=== PATIENT | female | born 1985 | race Caucasian/White ===

== ENCOUNTER 2017-07-24 09:41 | Emergency (ER) | payer OTHER ==
[2017-07-24 09:48] VITALS: BP 116/77; PULSE 93; TEMP 98.2; BMI 29.0
--- NOTE | 2017-07-24 10:54 | PDOC ---
Attending Attestation - HPI HPI: 07/24/17 11:07 The patient is a 31 year old female, with a significant past medical history of sickle cell disease, who presents to the emergency department with typical crisis of sickle cell disease with increase pain to bilateral knee, elbow, ankle , and finger joints, as well as, a pressure-like discomfort to her mid chest. The patient states she was on her way to work when her pain became intolerable and reports her carried me into the house. She states her chest discomfort is 7/10, without radiation. She denies history of acute chest and states her chest discomfort is typical before complete crisis. She states she recently lost her insurance card and ordered a new one to be sent to her home, however, has been unable to turkey picker medications in the pharmacy secondary to not having the insurance card present at time of Rx pick-up. She states she usually gets prescribed oxycontin, however, during ED visits in the past reportedly received 1 tab and IV fluids for rehydration. She states she will return her secondary school registrar, Nurse Practitioner Sarika Chenye at [place], as soon as she can. She reports her last ED visit for her sickle cell disease was February 2017. She denies shortness of breath, headache and dizziness. She denies fever, chills , nausea, vomit, diarrhea and constipation. She denies dysuria, frequency, urgency and hematuria. Allergies: NKDA Helicopter Crew Chief: Sarika SOLARES or [phone]) - Physicial Exam PE: 07/24/17 11:07 ROS: A complete review of 10 out of 10 review of systems is taken and is negative apart from what is previously mentioned below and in the HPI. Exam Vitals: Triage Vital signs reviewed General Appearance: no acute distress, well nourished well developed, Head: Atraumatic, normocephalic Eyes: Pupils equal reactive round, extraocular movement intact Ears: TM's normal bilaterally; Nose: Nares patent bilaterally;no nasal congestion Throat: Posterior oropharynx without erythema, mucous membranes moist, Neck: Supple;No Nuchal rigidity Chest Wall: Nontender Cardiac: Regular rate and rhythm, no murmurs, no rubs, no gallops, Lungs: Clear to auscultation bilateral, good air movement bilaterally, Abdomen: Soft, nondistended, normal bowel sounds, nontender to palpation Rectal: Exam deferred Extremities: Full range of motion to all extremities, no cyanosis, clubbing, or edema Skin: Warm and dry, no rashes or lesions, no petechiae Neuro: AOX3; Cranial Nerves 2-12 grossly c intact, Strength intact to all extremities, Sensation intact to all extremities, gait normal Psych: normal mood, normal affect - Medical Decision Making 07/24/17 11:08 HPI: Pt is 31 yoF with PMHx of sickle cell disease who presents with typical sickle cell crisis today. ROS: A complete review of 10 out of 10 review of systems is taken and is negative apart from what is previously mentioned below and in the HPI. Exam Vitals: Triage Vital signs reviewed General Appearance: no acute distress, well nourished well developed, Head: Atraumatic, normocephalic Eyes: Pupils equal reactive round, extraocular movement intact Ears: TM's normal bilaterally; Nose: Nares patent bilaterally;no nasal congestion Throat: Posterior oropharynx without erythema, mucous membranes moist, Neck: Supple;No Nuchal rigidity Chest Wall: Nontender Cardiac: Regular rate and rhythm, no murmurs, no rubs, no gallops, Lungs: Clear to auscultation bilateral, good air movement bilaterally, Abdomen: Soft, nondistended, normal bowel sounds, nontender to palpation Extremities: Full range of motion to all extremities, no cyanosis, clubbing, or edema Skin: Warm and dry, no rashes or lesions, no petechiae Neuro: AOX3; Cranial Nerves 2-12 grossly c intact, Strength intact to all extremities, Sensation intact to all extremities, gait normal Psych: normal mood, normal affect - Documentation prepared by Andreina Fatima, acting as medical equipment sales for Adan Andrea MD, <Andreina Fatima - Last Filed: 07/24/17 11:08> - ED Attending Attestation I have performed the following: I have examined & evaluated the patient, The case was reviewed & discussed with the resident, I agree w/resident's findings & plan, Exceptions are as noted - Medical Decision Making 07/24/17 11:51 History examination consistent with patient's previous sickle cell crises. Presents with sternum pain or elbow pain knee pain which is typical for her previous crises no fever no history of acute chest this is a feel any different than her previous episodes. Vital signs stable well-appearing no apparent distress We'll check labs chest x-ray pain meds hydrate and reassess Reevaluation: Patient feels much better asking to go home we'll discharge home a short course of Percocet she was instructed to follow up with secondary school registrar Findings, the need for follow-up, strict return instructions discussed with patient. <Adan Andrea - Last Filed: 07/24/17 17:07>
--- NOTE | 2017-07-24 10:59 | PDOC ---
History of Present Illness - General Chief Complaint: Sickle Cell Crisis Stated Complaint: SICKLE CELL CRISIS Time Seen by Provider: 07/24/17 10:01 History Source: Patient Exam Limitations: No Limitations - History of Present Illness Initial Comments: 07/24/17 10:56 The patient is a 31F with a PMH of sickle cell disease who presents to the ED with 2 days of generalized muscle aches and body pains. The patient states that she ran out "all her medications" 2 days ago and says that she's beginning to feel like her typical sickle cell crisis. she lost her insurance card recently and has been unable to get more medications. She was at work and began to feel her sickle cell onset and decided to come to the ER. Her typical symptoms are knee pain, elbow pain, and sternal pain. She says this feels like the onset of a normal sickle cell crisis for her. She is also complaining of chest pressure. She denies any CP, SOB, fever, chills, nausea, vomiting, numbness, tingling, or weakness or sore throat. LMP 2 weeks ago. Past History - Past Medical History Allergies/Adverse Reactions: Allergies Allergy/AdvReac Type Severity Reaction Status Date / Time No Known Allergies Allergy Verified 07/24/17 09:47 Home Medications: Ambulatory Orders Folic Acid 1 mg PO DAILY 07/24/17 Mirtazapine 7.5 mg PO HS 07/24/17 Oxycodone HCl [Oxycodone HCl ER] 10 mg PO PRN 07/24/17 Tramadol HCl [Tramadol HCl ER] 200 mg PO PRN 07/24/17 COPD: No Other medical history: sickle cell - Suicide/Smoking/Psychosocial Hx Smoking History: Current every day smoker Number of Cigarettes Smoked Daily: 3 Information on smoking cessation initiated: No Review of Systems - Review of Systems Able to Perform ROS?: Yes Comments:: 07/24/17 11:11 GENERAL/CONSTITUTIONAL: No fever or chills. No weakness. HEAD, EYES, EARS, NOSE AND THROAT: No change in vision. No ear pain or discharge. No sore throat. GASTROINTESTINAL: No nausea, vomiting, diarrhea, constipation, or abdominal pain. GENITOURINARY: No dysuria, frequency, hematuria, or change in urination. CARDIOVASCULAR: Positive for chest pressure. No chest pain, palpitations, or lightheadedness. RESPIRATORY: No cough, wheezing, shortness of breath, or hemoptysis. MUSCULOSKELETAL: Positive for knee, elbow, and sternal pain. No joint or muscle swelling or pain. No neck or back pain. SKIN: No rash or lesions. NEUROLOGIC: No headache, numbness, tingling, weakness, loss of consciousness, or change in strength/sensation. ENDOCRINE: No increased thirst. No abnormal weight change. HEMATOLOGIC/LYMPHATIC: No anemia, easy bleeding, or history of blood clots. ALLERGIC/IMMUNOLOGIC: No hives or skin allergy. Is the patient limited Gabonese proficient: No *Physical Exam - Vital Signs Last Vital Signs Temp Pulse Resp BP Pulse Ox 98.2 F 93 H 18 116/77 99 07/24/17 09:42 07/24/17 09:42 07/24/17 09:42 07/24/17 09:42 07/24/17 09:42 - Physical Exam Comments: 07/24/17 11:12 GENERAL: Well developed, well nourished. Awake and alert. No acute distress. HEENT: Normocephalic, atraumatic. Hearing grossly normal. Moist mucous membranes. PERRLA, EOMI. Oropharnyx is clear. NECK: Supple. Full ROM. No JVD. Carotid pulses 2+ and symmetric, without bruits. No thyromegaly. No lymphadenopathy. CARDIOVASCULAR: Regular rate and rhythm. No murmurs, rubs, or gallops. PULMONARY: No evidence of respiratory distress. Lungs clear to auscultation bilaterally. No wheezing, rales or rhonchi. ABDOMINAL: Soft. Non-tender. Non-distended. No rebound or guarding. No organomegaly. Normoactive bowel sounds. GENITOURINARY: No CVA tenderness bilaterally. MUSCULOSKELETAL: Normal range of motion at all joints. No bony deformities or tenderness. EXTREMITIES: No cyanosis. No clubbing. No edema. No calf tenderness. SKIN: Warm and dry. Normal capillary refill. No rashes. No jaundice. NEUROLOGICAL: Alert, awake, appropriate. Cranial nerves 2-12 intact. Normal speech. Gait is normal without ataxia. PSYCHIATRIC: Cooperative. Good eye contact. Appropriate mood and affect. ED Treatment Course - LABORATORY CBC & Chemistry Diagram: 07/24/17 11:30 07/24/17 11:30 - RADIOLOGY Radiology Studies Ordered: Category Date Time Status CHEST PA & LAT [RAD] Stat Radiology 07/24/17 10:55 Ordered Medical Decision Making - Medical Decision Making 07/24/17 11:13 The patient is a 31F with a PMH of sickle cell disorder who presents to the ED with complaints of an onset of her sickle crisis after running out of medications x 2 days. I have ordered labs and imaging to r/o acute chest and will monitor the patient closely. I have low suspicion for PE as her Wells' criteria is 0. ACS is lower on my differential and will be assessed with EKG and cardiac profile. CBC, CMP, retic count, and flu swab sent and pending. Will monitor closely. 07/24/17 12:05 CBC WNL. CMP pending. CXR pending. 07/24/17 12:26 CMP WNL. CXR pending. 07/24/17 12:53 CXR shows no pulmonary disease. Pt will be d/c with f/u. *DC/Admit/Observation/Transfer Diagnosis at time of Disposition: Sickle cell anemia Qualifiers: Sickle-cell associated disorders: with unspecified crisis Qualified Code(s): D57.00 - Hb-SS disease with crisis, unspecified; D57.0 - Hb-SS disease with crisis - Discharge Dispostion Disposition: HOME Condition at time of disposition: Stable Admit: No - Referrals Referrals: STAFF,NOT ON [Primary Care Provider] - - Patient Instructions Printed Discharge Instructions: DI for Sickle Cell Anemia, Pain Crisis -- Adult Additional Instructions: Please return to the ER if symptoms persist, worsen, or new symptoms arise. Please follow up with your primary care physician in 2-3 days. Please return to the ER if you have any signs or symptoms of chest pain, shortness of breath, uncontrollable fever, chills, nausea, vomiting, numbness, tingling, or weakness in any part of your body, changes in vision, or slurred speech. Please take your medications as prescribed and as needed. - Post Discharge Activity
[2017-07-24] MEDS ORDERED: HYDROmorphone HCL CARPU-JECT 1 MG/1 ML DISP.SYRIN IVPUSH ONE (11:00)
[2017-07-24] MEDS ORDERED: SODIUM CHLORIDE 0.9% 1000 ML INFUS.BAG IV ONE (11:07)
[2017-07-24 11:42] LABS: BASO # 0.1 #; BASO % 1.4 % (0-2.0); EOS # 0.6 #; EOS % 6.4 % (0-4.5); LYMPH # 2.2; MCH 29.5 pg (25.7-33.7); MCHC 32.7 g/dl (32.0-36.0); MEAN CELL VOLUME 90.2 fl (80-96); MEAN PLT VOLUME 8.5 fl (7.5-11.1); MONO # 0.7 #; NEUT # 5.3 #; PLATELET COUNT 356 K/MM3 (134-434); RDW 15.2 % (11.6-15.6); WHITE BLOOD COUNT 8.9 K/mm3 (4.0-10.0)
[2017-07-24] MEDS ORDERED: HYDROmorphone HCL CARPU-JECT 2 MG/1 ML DISP.SYRIN ONE (11:46)
[2017-07-24 12:09] LABS: CPK 140 IU/L (26-192)
[2017-07-24 12:10] LABS: ALBUMIN 3.8 g/dl (3.4-5.0); ALK PHOS 100 U/L (45-117); ANION GAP 5 (8-16); BILIRUBIN,TOTAL 0.6 mg/dL (0.2-1.0); CALCIUM 8.2 mg/dL (8.5-10.1); CO2 25 mmol/L (21-32); CREATININE 0.6 mg/dL (0.55-1.02); GLUCOSE,RANDOM 83 mg/dL (74-106); SGOT/AST 28 U/L (15-37); SGPT/ALT 32 U/L (12-78); TOT PROT 7.3 g/dl (6.4-8.2); TROPONIN I < 0.02 ng/ml (0.00-0.05)
== END 2017-07-24 14:42 | disposition home or self-care (01) ==
LOC: JER 09:41
PROC: 3E033NZ Introduction of Analgesics, Hypnotics, Sedatives into Peripheral Vein, Percutaneous Approach (ICD-10-PCS; principal; 2017-07-24)
PROC: 3E0337Z Introduction of Electrolytic and Water Balance Substance into Peripheral Vein, Percutaneous Approach (ICD-10-PCS; 2017-07-24)
DX: D57.00 Hb-SS disease with crisis, unspecified (principal)
CPT/HCPCS: 36415; 71020-TC; 80053; 82550; 84484; 84703; 85025; 85044; 86850; 86900; 86901; 87804; 99284-25

== ENCOUNTER 2017-07-26 02:27 | Emergency (ER) | payer OTHER ==
--- NOTE | 2017-07-26 02:54 | PDOC ---
History of Present Illness - General Chief Complaint: Sickle Cell Crisis Stated Complaint: SICKEL CELL CRISIS Time Seen by Provider: 07/26/17 02:39 History Source: Patient Exam Limitations: No Limitations - History of Present Illness Initial Comments: 07/26/17 03:39 31-year-old female with a history of sickle cell crisis presents to the emergency department complaining of bilateral wrists, bilateral elbows, bilateral knees, bilateral ankle pain 1 week. Patient states this feels like her typical sickle cell crisis. Patient denies any headache, dizziness, lightheadedness, facial pains, sore throat, neck pain/stiffness, back pains, shoulder pains, chest pain, shortness of breath, hip pains, extremity numbness or tingling sensation. Patient states she had chest pressure yesterday but has subsided when she awoke this morning. Patient was prescribed pain medication/ Toradol and Percocets states she had a difficult time picking up the medication. Patient has an appointment with her doctor in 2 days. Timing/Duration: 1 week Past History - Past Medical History Allergies/Adverse Reactions: Allergies Allergy/AdvReac Type Severity Reaction Status Date / Time No Known Allergies Allergy Verified 07/26/17 02:53 Home Medications: Ambulatory Orders Folic Acid 1 mg PO DAILY 07/24/17 Mirtazapine 7.5 mg PO HS 07/24/17 Oxycodone HCl [Oxycodone HCl ER] 10 mg PO PRN 07/24/17 Oxycodone HCl/Acetaminophen [Percocet 5-325 mg Tablet] 1 tab PO TID #9 tablet MDD 3 07/24/17 Tramadol HCl [Tramadol HCl ER] 200 mg PO PRN 07/24/17 COPD: No - Suicide/Smoking/Psychosocial Hx Smoking History: Current every day smoker Number of Cigarettes Smoked Daily: 3 Review of Systems - Review of Systems Able to Perform ROS?: Yes Comments:: 07/26/17 03:41 CONSTITUTIONAL: Absent: fever, chills, diaphoresis, generalized weakness, malaise, loss of appetite HEENT: Absent: rhinorrhea, nasal congestion, throat pain, throat swelling, difficulty swallowing, mouth swelling, ear pain, eye pain, visual Changes CARDIOVASCULAR: Absent: chest pain, loss of consciousness, palpitations, irregular heart rate, peripheral edema RESPIRATORY: Absent: cough, shortness of breath, dyspnea with exertion, orthopnea, wheezing, stridor, hemoptysis GASTROINTESTINAL: Absent: abdominal pain, abdominal distension, nausea, vomiting, diarrhea, constipation, melena, hematochezia GENITOURINARY: Absent: dysuria, frequency, urgency, hesitancy, hematuria, flank pain, genital pain MUSCULOSKELETAL: +B/L elbow/wrist/knees/ankle pain Absent: myalgia, arthralgia, joint swelling SKIN: Absent: rash, itching, pallor HEMATOLOGIC/IMMUNOLOGIC: Absent: easy bleeding, easy bruising, lymphadenopathy, frequent infections ENDOCRINE: Absent: unexplained weight gain, unexplained weight loss, heat intolerance, cold intolerance NEUROLOGIC: Absent: headache, focal weakness or paresthesias, dizziness, unsteady gait, seizure, mental status changes, bladder or bowel incontinence PSYCHIATRIC: Absent: anxiety, depression, suicidal or homicidal ideation, hallucinations. Is the patient limited Italian proficient: No *Physical Exam - Physical Exam Comments: 07/26/17 03:42 GENERAL: Well developed, well nourished. Awake and alert. No acute distress. HEENT: Normocephalic, atraumatic. PERRLA, EOMI. No conjunctival pallor. Sclera are non- icteric. Moist mucous membranes. Oropharynx is clear. NECK: Supple. Full ROM. No JVD. Carotid pulses 2+ and symmetric, without bruits. No thyromegaly. No lymphadenopathy. CARDIOVASCULAR: Regular rate and rhythm. No murmurs, rubs, or gallops. Distal pulses are 2+ and symmetric. PULMONARY: No evidence of respiratory distress. Lungs clear to auscultation bilaterally. No wheezing, rales or rhonchi. ABDOMINAL: Soft. Non-tender. Non-distended. No rebound or guarding. No organomegaly. Normoactive bowel sounds. MUSCULOSKELETAL Normal range of motion at all joints. No bony deformities or tenderness. No CVA tenderness. EXTREMITIES: ALL hoints: F,R.O.M. neg swelling neg pain on palp (Pt states pain is "in the inside like my sickle" No cyanosis. No clubbing. No edema. No calf tenderness. SKIN: Warm and dry. Normal capillary refill. No rashes. No jaundice. NEUROLOGICAL: Alert, awake, appropriate. Cranial nerves 2-12 intact. No deficits to light touch and temperature in face, upper extremities and lower extremities. No motor deficits in the in face, upper extremities and lower extremities. Normoreflexic in the upper and lower extremities. Normal speech. Toes are down- going bilaterally. Gait is normal without ataxia. Patient was ambulating around the emergency department without any difficulties. Patient was found in the emergency department exam room #7 laying in bed with her boyfriend and kissing. Patient's boyfriend was informed to get off the bed which she complies until I reentered the room again. Patient states it is okay for her boyfriend gives her massage while in the exam room. I informed the patient and her boyfriend that it is inappropriate for this type of activity in the emergency department.Patient does not to be in any type of distress PSYCHIATRIC: Cooperative. Good eye contact. Appropriate mood and affect. 07/26/17 03:42 *DC/Admit/Observation/Transfer Diagnosis at time of Disposition: Sickle cell anemia Qualifiers: Sickle-cell associated disorders: without crisis Qualified Code(s): D57.1 - Sickle-cell disease without crisis - Discharge Dispostion Disposition: HOME Condition at time of disposition: Stable Admit: No - Referrals Referrals: Herrera Hare MD [Staff Physician] - - Patient Instructions Printed Discharge Instructions: DI for Sickle Cell Anemia, Pain Crisis -- Adult Additional Instructions: Return back to the emergency department if symptoms worsen/persists or is severe , chest pain, shortness of breath, weakness change of vision. You must follow-up with your physician in 2 days as you have your appointment set already. - Post Discharge Activity
[2017-07-26 02:55] VITALS: BP 117/82; PULSE 85; TEMP 97.6; BMI 30.2
[2017-07-26] MEDS ORDERED: ACETAMINOPHEN 1000 MG/100 ML VIAL (NON FORMULARY) IVPB ONE (03:15)
[2017-07-26] MEDS ORDERED: ACETAMINOPHEN INJECTION 100 ML IVPB ONE (03:17)
== END 2017-07-26 04:14 | disposition home or self-care (01) ==
LOC: JER 02:27
PROC: 3E033NZ Introduction of Analgesics, Hypnotics, Sedatives into Peripheral Vein, Percutaneous Approach (ICD-10-PCS; principal; 2017-07-26)
DX: M25.532 Pain in left wrist (principal); M25.561 Pain in right knee; M25.562 Pain in left knee
CPT/HCPCS: 96374; 99282-25

== ENCOUNTER 2017-09-01 15:43 | Emergency (ER) | payer OTHER ==
[2017-09-01 15:49] VITALS: BP 100/50; PULSE 69; TEMP 97.3; BMI 28.8
--- NOTE | 2017-09-01 15:49 | PDOC ---
Rapid Medical Evaluation Time Seen by Provider: 09/01/17 15:48 Medical Evaluation: Allergies Allergy/AdvReac Type Severity Reaction Status Date / Time No Known Allergies Allergy Verified 07/26/17 02:53 09/01/17 15:48 31 year old female with sickle cell disease (scarf gluer was in [place] but no longer takes her insurance) presenting with chest "tightness" and joint pains. +SOB. -V/s unremarkable. -EKG -CXR -Labs including CBC, CMP, retics, T&S ordered but deferred as patient is a difficult stick -To Main ED for further evaluation
[2017-09-01 16:35] LABS: BASO % 1.1 % (0-2.0); EOS % 9.5 % (0-4.5); HEMATOCRIT 37.7 % (32.4-45.2); HEMOGLOBIN 12.7 GM/dL (10.7-15.3); LYMPH % 21.9 % (8-40); MCH 30.5 pg (25.7-33.7); MCHC 33.6 g/dl (32.0-36.0); MEAN CELL VOLUME 90.9 fl (80-96); NEUT % 61.5 % (42.8-82.8); PLATELET COUNT 318 K/MM3 (134-434); RBC 4.14 M/mm3 (3.60-5.2); RDW 13.7 % (11.6-15.6); RETICULOCYTES 1.26 % (0.5-1.5); WHITE BLOOD COUNT 9.9 K/mm3 (4.0-10.0)
[2017-09-01 16:59] LABS: ALBUMIN 3.8 g/dl (3.4-5.0); ANION GAP 12 (8-16); BILIRUBIN,TOTAL 0.6 mg/dL (0.2-1.0); BLOOD UREA NITROGEN 12 mg/dL (7-18); CALCIUM 8.7 mg/dL (8.5-10.1); CHLORIDE 106 mmol/L (98-107); CO2 23 mmol/L (21-32); CREATININE 0.9 mg/dL (0.55-1.02); GLUCOSE,RANDOM 114 mg/dL (74-106); POTASSIUM 4.2 mmol/L (3.5-5.1); SGOT/AST 17 U/L (15-37); SGPT/ALT 26 U/L (12-78); SODIUM 141 mmol/L (136-145)
[2017-09-01 17:01] LABS: ALK PHOS 107 U/L (45-117); TOT PROT 7.2 g/dl (6.4-8.2)
[2017-09-01] MEDS ORDERED: KETOROLAC TROMETHAMINE 30 MG/1 ML VIAL IM ONE (18:14)
--- NOTE | 2017-09-01 18:19 | PDOC ---
History of Present Illness - History of Present Illness Initial Comments: 09/01/17 18:41 "The patient is a 31 year old female with a significant PMH of sickle cell dz who presents to the emergency department with chest pressure and bilateral lower extremity aching since this morning. The patient describes the chest discomfort as pressure-like. Denies SOB. The pain is not exertional, not pleuritic. Denies leg swelling. Pt also reports bilateral leg pain that is worsened with standing. The patient notes she had a fever yesterday, took Tylenol and has resolved since with no recurring fevers. Pt states that these symptoms are similar to her prior sickle cell crises. She has had multiple similar episodes in the past. The patient denies chest pain, shortness of breath, headache and dizziness. Denies fever, chills, nausea, vomit, diarrhea and constipation. Denies dysuria, frequency, urgency and hematuria. Allergies: NKA Past surgical history: None reported Social history: Drinks socially. Every day smoker. No reported drug use. " <Davy Covington - Last Filed: 09/01/17 18:47> <Conner Price - Last Filed: 09/01/17 22:08> - General Chief Complaint: Sickle Cell Crisis Stated Complaint: SICKLE CELL CRISIS Time Seen by Provider: 09/01/17 15:48 Past History - Past Medical History COPD: No Other medical history: SICKLE CELL. - Surgical History Abdominal Surgery: Yes - Suicide/Smoking/Psychosocial Hx Smoking History: Current every day smoker Have you smoked in the past 12 months: Yes Number of Cigarettes Smoked Daily: 3 Information on smoking cessation initiated: No Hx Alcohol Use: Yes (socially.) Drug/Substance Use Hx: No Substance Use Type: Alcohol <Davy Covington - Last Filed: 09/01/17 18:47> <Conner Price - Last Filed: 09/01/17 22:08> - Past Medical History Allergies/Adverse Reactions: Allergies Allergy/AdvReac Type Severity Reaction Status Date / Time No Known Allergies Allergy Verified 09/01/17 15:48 Home Medications: Ambulatory Orders Folic Acid 1 mg PO DAILY 07/24/17 Mirtazapine 7.5 mg PO HS 07/24/17 Oxycodone HCl [Oxycodone HCl ER] 10 mg PO PRN 07/24/17 Oxycodone HCl/Acetaminophen [Percocet 5-325 mg Tablet] 1 tab PO TID #9 tablet MDD 3 07/24/17 Tramadol HCl [Tramadol HCl ER] 200 mg PO PRN 07/24/17 Review of Systems - Review of Systems Comments:: 09/01/17 18:43 "GENERAL/CONSTITUTIONAL: No fever or chills. No weakness. HEAD, EYES, EARS, NOSE AND THROAT: No change in vision. No ear pain or discharge. No sore throat. CARDIOVASCULAR: + chest pressure, no shortness of breath. RESPIRATORY: No cough, wheezing, or hemoptysis. GASTROINTESTINAL: No nausea, vomiting, diarrhea or constipation. GENITOURINARY: No dysuria, frequency, or change in urination. MUSCULOSKELETAL: + BLE pain SKIN: No rash NEUROLOGIC: No headache, vertigo, loss of consciousness, or change in strength/ sensation. ENDOCRINE: No increased thirst. No abnormal weight change. HEMATOLOGIC/LYMPHATIC: No anemia, easy bleeding, or history of blood clots. ALLERGIC/IMMUNOLOGIC: No hives or skin allergy. " <Davy Covington - Last Filed: 09/01/17 18:47> *Physical Exam - Vital Signs Last Vital Signs Temp Pulse Resp BP Pulse Ox 97.3 F L 69 18 100/50 99 09/01/17 15:46 09/01/17 15:46 09/01/17 15:46 09/01/17 15:46 09/01/17 15:46 - Physical Exam Comments: 09/01/17 18:19 "GENERAL: Awake, alert, and fully oriented, in no acute distress HEAD: No signs of trauma EYES: PERRLA, EOMI, sclera anicteric, conjunctiva clear ENT: Auricles normal inspection, hearing grossly normal, nares patent, oropharynx clear without exudates. Moist mucosa NECK: Nontender, no stepoffs, Normal ROM, supple, no lymphadenopathy, JVD, or masses LUNGS: Breath sounds equal, clear to auscultation bilaterally. No wheezes, and no crackles HEART: Regular rate and rhythm, normal S1 and S2, no murmurs, rubs or gallops ABDOMEN: Soft, nontender, normoactive bowel sounds. No guarding, no rebound. No masses EXTREMITIES: Normal range of motion, no edema. No clubbing or cyanosis. No cords, erythema, or tenderness NEUROLOGICAL: Cranial nerves II through XII intact. 5/5 strength and sensation in all extremities, Normal speech, normal gait SKIN: Warm, Dry, normal turgor, no rashes or lesions noted. " <Davy Covington - Last Filed: 09/01/17 18:47> - Vital Signs Last Vital Signs Temp Pulse Resp BP Pulse Ox 97.3 F L 69 18 100/50 99 09/01/17 15:46 09/01/17 15:46 09/01/17 15:46 09/01/17 15:46 09/01/17 15:46 <Conner Price - Last Filed: 09/01/17 22:08> Heart Score/ECG Review #1 09/01/17 22:07 Vent rate 58 bpm Sinus bradycardia Otherwise normal ECG <Conner Price - Last Filed: 09/01/17 22:08> ED Treatment Course - LABORATORY CBC & Chemistry Diagram: 09/01/17 16:03 09/01/17 16:03 - ADDITIONAL ORDERS Additional order review: Laboratory Results 09/01/17 09/01/17 09/01/17 16:03 16:03 15:55 Sodium 141 Potassium 4.2 Chloride 106 Carbon Dioxide 23 Anion Gap 12 BUN 12 Creatinine 0.9 Creat Clearance w eGFR > 60 Random Glucose 114 H Calcium 8.7 Total Bilirubin 0.6 AST 17 ALT 26 Alkaline Phosphatase 107 Total Protein 7.2 Albumin 3.8 Urine HCG, Qual Negative Blood Type O POSITIVE Antibody Screen Negative 09/01/17 16:03 RBC 4.14 MCV 90.9 MCHC 33.6 RDW 13.7 MPV 9.0 Neutrophils % 61.5 Lymphocytes % 21.9 Monocytes % 6.0 Eosinophils % 9.5 H Basophils % 1.1 <Dvay Covington - Last Filed: 09/01/17 18:47> - LABORATORY CBC & Chemistry Diagram: 09/01/17 16:03 09/01/17 16:03 - ADDITIONAL ORDERS Additional order review: Laboratory Results 09/01/17 09/01/17 09/01/17 16:03 16:03 15:55 Sodium 141 Potassium 4.2 Chloride 106 Carbon Dioxide 23 Anion Gap 12 BUN 12 Creatinine 0.9 Creat Clearance w eGFR > 60 Random Glucose 114 H Calcium 8.7 Total Bilirubin 0.6 AST 17 ALT 26 Alkaline Phosphatase 107 Total Protein 7.2 Albumin 3.8 Urine HCG, Qual Negative Blood Type O POSITIVE Antibody Screen Negative 09/01/17 16:03 RBC 4.14 MCV 90.9 MCHC 33.6 RDW 13.7 MPV 9.0 Neutrophils % 61.5 Lymphocytes % 21.9 Monocytes % 6.0 Eosinophils % 9.5 H Basophils % 1.1 - Medications Given in the ED: ED Medications Discontinued Medications Generic Name Dose Route Start Last Admin Trade Name Frank PRN Reason Stop Dose Admin Ketorolac Tromethamine 30 mg 09/01/17 18:14 09/01/17 18:20 Toradol Injection - IM 09/01/17 18:15 30 mg ONCE ONE Administration <Conner Price - Last Filed: 09/01/17 22:08> Medical Decision Making - Medical Decision Making 09/01/17 18:17 31 F with bodyaches and chest pressure. States that it feels like her usual sickle cell pain. Pt with clear lungs and normal vitals. Pain is very atypical for ACS. Pt with normal vitals, no clinical signs/symptoms of DVT. - Labs - CXR - IM toradol 09/01/17 18:44 Labs unremarkable. No anemia, normal retic count. Very unlikely pt is having true VOC. 09/01/17 18:45 Pt signed out to oncoming attending at 7pm, pending CXR, EKG, troponin, and re- evaluation. <Davy Covington - Last Filed: 09/01/17 18:47> *DC/Admit/Observation/Transfer - Attestations Physician Attestion: 09/01/17 18:47 I, Dr. Davy Covington MD, attest that this document has been prepared under my direction and personally reviewed by me in its entirety. I further attest, that it accurately reflects all work, treatment, procedures and medical decision -making performed by me. <Davy Covington - Last Filed: 09/01/17 18:47> <Conner Price - Last Filed: 09/01/17 22:08> - Referrals Referrals: Stas Haywood MD [Staff Physician] - Shayne Stauffer MD [Staff Physician] - - Patient Instructions Printed Discharge Instructions: DI for Atypical Chest Pain Additional Instructions: Follow up with a primary care doctor within 1 week for further work up of your chest pain. Call the number provided to make an appointment with our internal medicine clinic. Call the number provided to make an appointment with our hematology clinic as well for further work up of your sickle cell disease. If you experience worsening chest pain, shortness of breath, or any other concerning symptoms, return to the ER immediately.
[2017-09-01] MEDS ORDERED: KETOROLAC TROMETHAMINE 30 MG/1 ML VIAL ONE (18:20)
--- NOTE | 2017-09-01 22:36 | PDOC ---
*Physical Exam - Vital Signs Last Vital Signs Temp Pulse Resp BP Pulse Ox 97.3 F L 69 18 100/50 99 09/01/17 15:46 09/01/17 15:46 09/01/17 15:46 09/01/17 15:46 09/01/17 15:46 ED Treatment Course - LABORATORY CBC & Chemistry Diagram: 09/01/17 16:03 09/01/17 16:03 - ADDITIONAL ORDERS Additional order review: Laboratory Results 09/01/17 09/01/17 09/01/17 19:19 16:03 16:03 Sodium 141 Potassium 4.2 Chloride 106 Carbon Dioxide 23 Anion Gap 12 BUN 12 Creatinine 0.9 Creat Clearance w eGFR > 60 Random Glucose 114 H Calcium 8.7 Total Bilirubin 0.6 AST 17 ALT 26 Alkaline Phosphatase 107 Creatine Kinase 102 Troponin I < 0.02 Total Protein 7.2 Albumin 3.8 Urine HCG, Qual Blood Type O POSITIVE Antibody Screen Negative 09/01/17 15:55 Sodium Potassium Chloride Carbon Dioxide Anion Gap BUN Creatinine Creat Clearance w eGFR Random Glucose Calcium Total Bilirubin AST ALT Alkaline Phosphatase Creatine Kinase Troponin I Total Protein Albumin Urine HCG, Qual Negative Blood Type Antibody Screen 09/01/17 16:03 RBC 4.14 MCV 90.9 MCHC 33.6 RDW 13.7 MPV 9.0 Neutrophils % 61.5 Lymphocytes % 21.9 Monocytes % 6.0 Eosinophils % 9.5 H Basophils % 1.1 - Medications Given in the ED: ED Medications Discontinued Medications Generic Name Dose Route Start Last Admin Trade Name Freq PRN Reason Stop Dose Admin Ketorolac Tromethamine 30 mg 09/01/17 18:14 09/01/17 18:20 Toradol Injection - IM 09/01/17 18:15 30 mg ONCE ONE Administration *DC/Admit/Observation/Transfer Diagnosis at time of Disposition: Sickle cell anemia, Chest pain - Discharge Dispostion Disposition: HOME Condition at time of disposition: Stable Admit: No - Referrals Referrals: Stas Haywood MD [Staff Physician] - Shayne Stauffer MD [Staff Physician] - - Patient Instructions Printed Discharge Instructions: DI for Atypical Chest Pain, DI for Sickle Cell Anemia, Pain Crisis -- Adult Additional Instructions: Follow up with a primary care doctor within 1 week for further work up of your chest pain. Call the number provided to make an appointment with our internal medicine clinic. Call the number provided to make an appointment with our hematology clinic as well for further work up of your sickle cell disease. If you experience worsening chest pain, shortness of breath, or any other concerning symptoms, return to the ER immediately. - Post Discharge Activity
--- NOTE | 2017-09-02 09:50 | EKG ---
Test Reason : Blood Pressure : / mmHG Vent. Rate : 058 BPM Atrial Rate : 058 BPM P-R Int : 164 ms QRS Dur : 084 ms QT Int : 442 ms P-R-T Axes : 055 049 037 degrees QTc Int : 433 ms SINUS BRADYCARDIA OTHERWISE NORMAL ECG NO PREVIOUS ECGS AVAILABLE Confirmed by ALVIN LORA, ZOLTAN ([id number]) on 09/02/2017 9:50:02 AM Referred By: Confirmed By:ZOLTAN ESQUIVEL MD
== END 2017-09-01 22:50 | disposition home or self-care (01) ==
LOC: JER 15:43
PROC: 3E0233Z Introduction of Anti-inflammatory into Muscle, Percutaneous Approach (ICD-10-PCS; principal; 2017-09-01)
DX: D57.1 Sickle-cell disease without crisis (principal); R07.89 Other chest pain
CPT/HCPCS: 36415; 71046-TC-FY; 80053; 82550; 84484; 84703; 85025; 85044; 86850; 86900; 86901; 93005; 93010; 96372; 99284-25